=== PATIENT | female | born 1985 | race Caucasian/White ===

== ENCOUNTER 2025-05-24 18:43 | Inpatient (IN) ==
[2025-05-24] MEDS: SODIUM CHLORIDE 0.9% 500 ML IV STA (19:21)
[2025-05-24 19:45] LABS: Hematocrit (blood only) 42.1 % (37.0-47.0); Hemoglobin 13.3 g/dl (12.0-16.0); Immature Granulocytes # (auto) 0.05 K/uL (0.01-0.20); Immature Granulocytes % (auto) 0.4 %; Mean Corpuscular Hemoglobin 27.8 pg (25.0-34.0); Mean Corpuscular Volume 87.9 fL (80.0-100.0); Platelet Count 306 K/uL (130-400); RDW Standard Deviation 46.7 fL (36.4-46.3); Red Blood Count 4.79 M/uL (4.20-5.40); White Blood Count 13.84 K/ul (4.8-10.8)
[2025-05-24 19:50] LABS: Appearance Urine Clear (Clear); Glucose Urine UA Negative (Negative)
[2025-05-24 20:01] LABS: Alanine Aminotransferase 16.0 U/L (7-52); Albumin Globulin Ratio 1.0 (0.9-2); Albumin Level 3.9 gm/dl (3.4-5.0); Alkaline Phosphatase 76.0 U/L (34-104); Anion Gap 8.0 (3-11); Bilirubin,Total 0.5 mg/dl (0.2-1.0); Blood Urea Nitrogen 12.0 mg/dl (6-23); Calcium 9.2 mg/dl (8.6-10.3); Carbon Dioxide 27.0 mmol/L (21-32); Chloride 104.0 mmol/L (98-107); Creatinine Clr Calc Pharmacy 139.7 ml/min; Globulin 4.1 gm/dl (2.5-4.0); Glucose 81.0 mg/dl (70-99(Fasting)); Potassium 3.9 mmol/L (3.5-5.1); Sodium 139.0 mmol/L (136-145); Total Protein 8.0 gm/dl (6.0-8.3)
--- NOTE | 2025-05-24 20:50 | Emergency Department Note ---
Impression & Plan Bilateral flank pain, Leukocytosis, Urinary frequency, Failure of outpatient treatment ED Provider Note NAME: ERROL SAL AGE: 39 SEX: F : 1985 ARRIVES VIA: Walk-In INFORMANT: [Patient] ED PROVIDER(S): [Andres Vegas MD] CHIEF COMPLAINT: Urinary symptoms HISTORY OF PRESENT ILLNESS: The patient is a 39-year-old female presents to the ED with ongoing flank discomfort, urinary frequency urgency and chills. She has had nausea and maybe a low-grade fever. Patient went through 3 courses of cephalexin for UTI and, her symptoms are not improving. She is concerned that she is failing outpatient treatment, she presents for evaluation. There has been no vomiting, no diarrhea. She is using probiotics with her antibiotics. She states that she has a lot of medication allergies and, this is why they chose to use 3 courses of the same antibiotic over the last several weeks. PMHx/PSHx/Social Hx: See Below PHYSICAL EXAM: GENERAL: Patient is in no acute distress. HEENT: No acute trauma, normocephalic atraumatic, mucous membranes moist, no nasal congestion. NECK: No stridor, no adenopathy, no meningismus, trachea is midline. LUNGS: Clear to auscultation bilaterally, no wheeze, no rhonchi, breath sounds equal. HEART: Without murmurs gallops or rubs, regular rate and rhythm. ABDOMEN: Soft, nontender, no peritonitis. Obese. EXTREMITIES: No cyanosis, full range of motion of all the joints without pain or difficulty. NEUROLOGIC: Oriented x 3, no acute motor or sensory deficits, no focal weakness. SKIN: No jaundice, no diaphoresis. DIFFERENTIAL DIAGNOSIS: Pyelonephritis, failed outpatient management, diverticulitis, UTI, bacteremia or sepsis, among others. EMERGENCY DEPARTMENT PROCEDURES: MEDICAL DECISION MAKING: There is a mild leukocytosis, this could be consistent with infection. There was a normal hemoglobin and platelet count. No bandemia. No renal failure or significant electrolyte abnormality. Lactic acid level was not elevated making sepsis less likely. No concerning liver enzyme elevation. Urinalysis does not show infection, dehydration was seen. Abdominal and pelvis CT does not show any acute surgical process, there was no ureteral obstruction. testing was negative. Patient received IV saline, 1.5 L. She was given IV ceftriaxone as antibiotic coverage. Patient has been on 3 different courses of what sounds like cephalexin. She still has a white count, she still has urinary symptoms and is running a fever. She certainly may have a pyelonephritis which has failed outpatient therapy, especially given her ongoing flank pain. I do think admission, IV antibiotic therapy, further workup/care would be warranted. I spoke with the patient and case management, the on-call hospitalist was consulted. Prior/Outside records/notes reviewed: None Imaging/x-ray results per my interpretation: Chronic Medical/Social conditions affecting care: None Care/Management discussed with: Case management, the on-call hospitalist. Level of care consideration(s): After review of the information above and other included data: --I believe the patient requires escalation of care to admission DISPOSITION: Admission Past Med/Surg History Problem List (Updated 05/24/25 @ 23:23 by Andres Vegas MD) Failure of outpatient treatment (Acute) Urinary frequency (Acute) Leukocytosis (Acute) Bilateral flank pain (Acute) Medical History Acute UTI Surgical History No significant past surgical history Social History Smoking Status: Never smoker Preferred Language: Cypriot Feels Safe at Home: Yes Allergies Allergies Allergy/AdvReac Type Severity Reaction Status Date / Time COVID-19 (SARS-CoV-2) Allergy Severe Anaphylaxis---PFIZER Verified 03/20/25 17:57 vaccine, twyla BRAND metoclopramide [From Reglan] Allergy Severe Anaphylaxis Verified 03/20/25 17:57 /RASH/TREMO RS acetaminophen [From Tylenol] Allergy Intermediate "SKIN Verified 03/20/25 17:57 PEELED OFF" azithromycin Allergy Intermediate WAGNER Verified 03/20/25 17:57 DARIELA SYNDROME ketorolac [From Toradol] Allergy Intermediate WAGNER Verified 03/20/25 17:57 DARIELA SYNDROME naproxen [From Aleve] Allergy Intermediate ITCHY RASH Verified 03/20/25 17:57 ondansetron [From Zofran] Allergy Intermediate Rash Verified 03/20/25 17:57 ALL "FLOXICIN" ANTIBIOTICS Allergy Severe Anaphylaxis Uncoded 03/20/25 17:57 CT SCAN DYE Allergy Intermediate ITCHY ALL Uncoded 03/20/25 17:57 OVER Home Meds Home Medications Medication Instructions Recorded Confirmed Homeopathic Cardiac Support 1 dose PO DIRECTED PRN 01/13/25 03/20/25 NEEDED PER PT Results & Data (ED) Vital Signs Vital Signs - 24 hr 05/24/25 18:56 05/24/25 20:34 05/24/25 23:00 Temperature 36.4 C L Temperature Source Oral Pulse Rate 83 74 Pulse Rate [Apical] 83 Pulse Rhythm [Apical] Regular Pulse Strength [Apical] Normal Respiratory Rate 20 18 Respiratory Effort / Characteristics Non-Labored Spontaneous Non-Labored Spontaneous Respiratory Depth Normal Normal Respiratory Pattern Regular Regular Blood Pressure 141/90 H Blood Pressure [Right Arm] 142/77 H Blood Pressure Mean 107 Blood Pressure Mean [Right Arm] 98 Blood Pressure Position [Right Arm] Lying Pulse Oximetry 97 96 Oxygen Delivery Method Room Air Room Air Sepsis Recent Fever Within 48 Hours No Sepsis New/Unexplained Change in Mental Status No Sepsis Action Taken by Nursing No Action Required Home Medications Current Medication List: was personally reviewed by me Laboratory Data Attestation: I reviewed the patient's lab results. 05/24/25 19:24 05/24/25 19:24 Lab Results 05/24/25 05/24/25 Range/Units 19:24 21:18 WBC 13.84 H (4.8-10.8) K/ul RBC 4.79 (4.20-5.40) M/uL Hgb 13.3 (12.0-16.0) g/dl Hct 42.1 (37.0-47.0) % MCV 87.9 (80.0-100.0) fL MCH 27.8 (25.0-34.0) pg MCHC 31.6 L (32.0-36.0) g/dL RDW Std Deviation 46.7 H (36.4-46.3) fL RDW Coeff of Jessica 14.5 (11.5-14.5) % Plt Count 306 (130-400) K/uL MPV 10.4 (9.4-12.4) fL Immature Gran % (Auto) 0.4 % Neut % (Auto) 63.3 % Lymph % (Auto) 26.0 % [place] % (Auto) 8.7 % Eos % (Auto) 1.4 % Baso % (Auto) 0.2 % Neut # (Auto) 8.75 H (1.40-6.50) K/uL Lymph # (Auto) 3.60 H (1.20-3.40) K/uL [place]kins # (Auto) 1.21 H (0.11-0.59) K/uL Eos # (Auto) 0.20 (0.00-0.50) K/uL Baso # (Auto) 0.03 (0.00-0.20) K/uL Immature Gran # (Auto) 0.05 (0.01-0.20) K/uL Sodium 139 (136-145) mmol/L Potassium 3.9 (3.5-5.1) mmol/L Chloride 104 (98-107) mmol/L Carbon Dioxide 27 (21-32) mmol/L Anion Gap 8 (3-11) BUN 12 (6-23) mg/dl Creatinine 0.79 (0.6-1.2) mg/dl Est Cr Clr Drug Dosing 139.7 ml/min eGFR 96.92 BUN/Creatinine Ratio 15.2 (10-20) Glucose 81 (70-99(Fasting)) mg/dl Lactate 1.7 (0.4-2.0) mmol/L Calcium 9.2 (8.6-10.3) mg/dl Total Bilirubin 0.5 (0.2-1.0) mg/dl AST 13 (13-39) U/L ALT 16 (7-52) U/L Alkaline Phosphatase 76 (34-104) U/L Total Protein 8.0 (6.0-8.3) gm/dl Albumin 3.9 (3.4-5.0) gm/dl Globulin 4.1 H (2.5-4.0) gm/dl Albumin/Globulin Ratio 1.0 (0.9-2) Urine Color Yellow Urine Appearance Clear (Clear) Urine pH 5.0 (4.5-7.5) Ur Specific [place] 1.026 (1.000-1.030) Urine Protein Negative (Negative) Urine Glucose (UA) Negative (Negative) Urine Ketones Trace H (Negative) Urine Blood Negative (Negative) Urine Nitrite Negative (Negative) Urine Bilirubin Negative (Negative) Urine Urobilinogen Negative (Negative) Ur Leukocyte Esterase Negative (Negative) POC Ur Test NEG (NEG) Urine Comment Administered Medications Discontinued Medications Sodium Chloride (Nss) 500 mls @ 999 mls/hr IV .Q31M STA Stop: 05/24/25 19:30 Last Infusion: 05/24/25 19:52 Dose: Infused Documented By: Admin: 05/24/25 19:21 Dose: 999 mls/hr Documented By: MEGGAN Sodium Chloride (Nss) 1,000 mls @ 999 mls/hr IV .Q1H1M ONE Stop: 05/24/25 21:43 Last Infusion: 05/24/25 22:25 Dose: Infused Documented By: Admin: 05/24/25 21:24 Dose: 999 mls/hr Documented By: NICO Ceftriaxone Sodium (Rocephin) 2,000 mg in 50 mls @ 100 mls/hr IV NOW STA Stop: 05/24/25 21:13 Last Infusion: 05/24/25 21:48 Dose: Infused Documented By: Admin: 05/24/25 21:18 Dose: 100 mls/hr Documented By: NICO Imaging Data Radiologist's Impression: Abdomen/Pelvis CT 05/24/25 20:43 Exam(s): CT ABDOMEN + PELVIS Without Contrast EXAM: CT Abdomen and Pelvis Without Intravenous Contrast CLINICAL HISTORY: flank pain, poss stone. TECHNIQUE: Axial computed tomography images of the abdomen and pelvis without intravenous contrast. CTDI is 28.14 mGy and DLP is 1535.53 mGy-cm. Automated exposure control was utilized for the study. A dose lowering technique was utilized adhering to the principles of ALARA. COMPARISON: Noncontrast CT abdomen and pelvis dated 05/01/2025 FINDINGS: Limitations: There is diffuse respiratory artifact, which degrades image quality throughout the examination. Lung bases: Unremarkable. No mass. No consolidation. Mediastinum: A hiatal hernia is identified measuring 3.3 x 3.7 cm. ABDOMEN: Liver: Hepatomegaly, similar. Gallbladder and bile ducts: Unremarkable. No calcified stones. No ductal dilation. Pancreas: Unremarkable. No ductal dilation. Spleen: Unremarkable. No splenomegaly. Adrenals: Unremarkable. No mass. Kidneys and ureters: The unenhanced kidneys demonstrate normal contours without definite nephrolithiasis, accounting for limitations with respiratory artifact, or hydronephrosis. No definite ureteral stones. Stomach and bowel: The stomach is predominantly decompressed with only mild fluid and gas. No evidence for bowel obstruction. Evaluation of the bowel mucosa is limited without contrast and respiratory artifact. No obvious significant alteration from the prior examination. Moderate stool burden. PELVIS: Appendix: The appendix is not clearly delineated. Bladder: Unremarkable. No stones. Reproductive: Unremarkable as visualized. ABDOMEN and PELVIS: Intraperitoneal space: Unremarkable. No free air. No significant fluid collection. Bones/joints: No acute fracture. No dislocation. Soft tissues: Unremarkable. Vasculature: Unremarkable. No abdominal aortic aneurysm. Lymph nodes: Unremarkable. No enlarged lymph nodes. IMPRESSION: 1. There is diffuse respiratory artifact, which degrades image quality throughout the examination. 2. The unenhanced kidneys demonstrate normal contours without definite nephrolithiasis, accounting for limitations with respiratory artifact, or hydronephrosis. No definite ureteral stones. No bladder stones. 3. No evidence for bowel obstruction. Evaluation of the bowel mucosa is limited without contrast and respiratory artifact. No obvious significant alteration from the prior examination. Moderate stool burden. No free intraperitoneal fluid or definite pneumoperitoneum. Electronically signed by: Anton Mcclure MD 05/24/25 22:36 PM Discharge Plan Visit Data Chief Complaint: Urinary Symptoms Stated Complaint: KIDNEY STONE/UTI ED Provider: Andres Vegas Discharge Problem: Bilateral flank pain, Leukocytosis, Urinary frequency, Failure of outpatient treatment Patient Disposition: Admitted As Inpatient Condition: Fair Forms Stand Alone Forms: Ultrasound Medical Devices Prescriptions Prescriptions: No Action Homeopathic Cardiac Support 1 dose PO DIRECTED PRN (Reason: NEEDED PER PT) Rx Instructions: TINCTURES Referrals Referrals: PCP,NO [Primary Care Provider] - Discharge Problem: Leukocytosis Qualifiers: Leukocytosis type: unspecified Qualified Code(s): D72.829 - Elevated white blood cell count, unspecified
[2025-05-24] MEDS: cefTRIAXone SODIUM 2,000 MG/50 ML BAG IV STA (21:18)
[2025-05-24] MEDS: SODIUM CHLORIDE 0.9% 1,000 ML IV ONE (21:24)
--- NOTE | 2025-05-24 22:37 | CT Scan Report ---
Exam(s): CT ABDOMEN + PELVIS Without Contrast EXAM: CT Abdomen and Pelvis Without Intravenous Contrast CLINICAL HISTORY: flank pain, poss stone. TECHNIQUE: Axial computed tomography images of the abdomen and pelvis without intravenous contrast. CTDI is 28.14 mGy and DLP is 1535.53 mGy-cm. Automated exposure control was utilized for the study. A dose lowering technique was utilized adhering to the principles of ALARA. COMPARISON: Noncontrast CT abdomen and pelvis dated 05/01/2025 FINDINGS: Limitations: There is diffuse respiratory artifact, which degrades image quality throughout the examination. Lung bases: Unremarkable. No mass. No consolidation. Mediastinum: A hiatal hernia is identified measuring 3.3 x 3.7 cm. ABDOMEN: Liver: Hepatomegaly, similar. Gallbladder and bile ducts: Unremarkable. No calcified stones. No ductal dilation. Pancreas: Unremarkable. No ductal dilation. Spleen: Unremarkable. No splenomegaly. Adrenals: Unremarkable. No mass. Kidneys and ureters: The unenhanced kidneys demonstrate normal contours without definite nephrolithiasis, accounting for limitations with respiratory artifact, or hydronephrosis. No definite ureteral stones. Stomach and bowel: The stomach is predominantly decompressed with only mild fluid and gas. No evidence for bowel obstruction. Evaluation of the bowel mucosa is limited without contrast and respiratory artifact. No obvious significant alteration from the prior examination. Moderate stool burden. PELVIS: Appendix: The appendix is not clearly delineated. Bladder: Unremarkable. No stones. Reproductive: Unremarkable as visualized. ABDOMEN and PELVIS: Intraperitoneal space: Unremarkable. No free air. No significant fluid collection. Bones/joints: No acute fracture. No dislocation. Soft tissues: Unremarkable. Vasculature: Unremarkable. No abdominal aortic aneurysm. Lymph nodes: Unremarkable. No enlarged lymph nodes. IMPRESSION: 1. There is diffuse respiratory artifact, which degrades image quality throughout the examination. 2. The unenhanced kidneys demonstrate normal contours without definite nephrolithiasis, accounting for limitations with respiratory artifact, or hydronephrosis. No definite ureteral stones. No bladder stones. 3. No evidence for bowel obstruction. Evaluation of the bowel mucosa is limited without contrast and respiratory artifact. No obvious significant alteration from the prior examination. Moderate stool burden. No free intraperitoneal fluid or definite pneumoperitoneum. Electronically signed by: Anton Mcclure MD 05/24/25 22:36 PM
--- NOTE | 2025-05-25 01:05 | History & Physical Report ---
Date of Service May 25, 2025 Assessment & Plan (1) Bilateral flank pain: Plan: 39-year-old female unassigned patient with no significant past medical history patient says she has gallstones and probably high cholesterol and waiting for doctor's appointment comes because of ongoing urinary symptoms. Patient says she developed burning micturition and urgency and bilateral flank pains ongoing for last 3 weeks. She is on her third course of Keflex. Since her symptoms not improving and she was feeling nauseous, fatigue and some brain fog came to the ER today. Patient denies any fevers. Couple of weeks ago she had some shortness of breath while she was waiting outside the house and felt dizzy but that got resolved. Patient has some ear discomfort and sore throat but that improved on Keflex. No cough. No chest pain or shortness of breath. Appetite is okay. A few days ago she had diarrhea but that got resolved. Currently resting comfortably and hemodynamically stable. Bilateral flank pain Urinary symptoms Possible pyonephritis She is on third course of Keflex for UTI UA is unremarkable here CT abdomen pelvis is unremarkable Has leukocytosis But because of ongoing symptoms, getting admitted for possible pyonephritis Received Rocephin in Er which will be continued Gentle fluids Will follow blood cultures Morbid obesity Counseling DVT prophylaxis Heparin subcu Disposition Medical floor Full code. History of Present Illness Chief Complaint: Urinary symptoms Primary Care Provider: GUSTAVO PCP 39-year-old female unassigned patient with no significant past medical history patient says she has gallstones and probably high cholesterol and waiting for doctor's appointment comes because of ongoing urinary symptoms. Patient says she developed burning micturition and urgency and bilateral flank pains ongoing for last 3 weeks. She is on her third course of Keflex. Since her symptoms not improving and she was feeling nauseous, fatigue and some brain fog came to the ER today. Patient denies any fevers. Couple of weeks ago she had some shortness of breath while she was waiting outside the house and felt dizzy but that got resolved. Patient has some ear discomfort and sore throat but that improved on Keflex. No cough. No chest pain or shortness of breath. Appetite is okay. A few days ago she had diarrhea but that got resolved. Currently resting comfortably and hemodynamically stable. Past medical history. As mentioned above Past surgical history. Denies any surgeries. Family history significant for diabetes as per patient. Social history. Denies smoking or alcohol use. Allergies Allergy/AdvReac Type Severity Reaction Status Date / Time COVID-19 (SARS-CoV-2) Allergy Severe Anaphylaxis---PFIZER Verified 03/20/25 17:57 vaccine, twyla BRAND metoclopramide [From Reglan] Allergy Severe Anaphylaxis Verified 03/20/25 17:57 /RASH/TREMO RS Quinolones Allergy Severe Anaphylaxis Verified 05/25/25 04:01 -- "all FLOXICIN antibiotics" acetaminophen [From Tylenol] Allergy Intermediate "SKIN Verified 03/20/25 17:57 PEELED OFF" azithromycin Allergy Intermediate WAGNER Verified 03/20/25 17:57 DARIELA SYNDROME Iodinated Contrast Media Allergy Intermediate "CT scan Verified 05/25/25 04:01 dye" -- itchy all over ketorolac [From Toradol] Allergy Intermediate WAGNER Verified 03/20/25 17:57 DARIELA SYNDROME naproxen [From Aleve] Allergy Intermediate ITCHY RASH Verified 03/20/25 17:57 ondansetron [From Zofran] Allergy Intermediate Rash Verified 03/20/25 17:57 Home Medications Medication Instructions Recorded Confirmed Type Homeopathic Cardiac Support 1 dose PO DIRECTED PRN 01/13/25 03/20/25 History NEEDED PER PT Past Med/Surg History Problem List (Updated 05/24/25 @ 23:23 by Andres Vegas MD) Failure of outpatient treatment (Acute) Urinary frequency (Acute) Leukocytosis (Acute) Bilateral flank pain (Acute) Medical History Acute UTI Surgical History No significant past surgical history Social History Smoking Status: Never smoker Do You Dip or Chew Tobacco: No; Hx Alcohol Use: No Hx Substance Use: No Preferred Language: [place] Communication Ability: Effective Dianeticist Required: No Beliefs That Will Affect Care: None Current Living Situation: Spouse Feels Safe at Home: Yes Safety Concerns: Feels Safe At This Time Assistive Devices: None Review of Systems Review of Systems: All systems reviewed & are unremarkable except as noted in HPI & below Physical Exam Physical Exam: General- Not in distress Head- atraumatic Eyes- PERRL. ENT- oropharynx clear Neck- supple, no JVD. Lungs- clear to auscultation no wheezing or crackles Heart- regular rhythm; no murmur, no gallop. Abdomen- normal bowel sounds, soft, nontender, no distension, mild b/l cva tenderness Extremities- no pretibial edema, no erythema seen Neuro- alert, oriented PERRL, no facial palsy; no dysarthria; moves extremities Results & Data Results & Data Vital Signs (Past 12 Hours) Vital Signs Temp Pulse Pulse Resp BP BP Pulse Ox 05/25/25 00:35 89 05/24/25 23:00 83 18 142/77 H 96 05/24/25 20:34 74 05/24/25 18:56 36.4 C L 83 20 141/90 H 97 O2 Del Method 05/25/25 00:35 05/24/25 23:00 Room Air 05/24/25 20:34 05/24/25 18:56 Room Air Diagnostic Findings Laboratory Results WBC 13.84 K/ul (4.8-10.8) H 05/24/25 19:24 RBC 4.79 M/uL (4.20-5.40) 05/24/25 19:24 Hgb 13.3 g/dl (12.0-16.0) 05/24/25 19:24 Hct 42.1 % (37.0-47.0) 05/24/25 19:24 MCV 87.9 fL (80.0-100.0) 05/24/25 19:24 MCH 27.8 pg (25.0-34.0) 05/24/25 19:24 MCHC 31.6 g/dL (32.0-36.0) L 05/24/25 19:24 RDW Std Deviation 46.7 fL (36.4-46.3) H 05/24/25 19:24 RDW Coeff of Jessica 14.5 % (11.5-14.5) 05/24/25 19:24 Plt Count 306 K/uL (130-400) 05/24/25 19:24 MPV 10.4 fL (9.4-12.4) 05/24/25 19:24 Immature Gran % (Auto) 0.4 % 05/24/25 19:24 Neut % (Auto) 63.3 % 05/24/25 19:24 Lymph % (Auto) 26.0 % 05/24/25 19:24 [place] % (Auto) 8.7 % 05/24/25 19:24 Eos % (Auto) 1.4 % 05/24/25 19:24 Baso % (Auto) 0.2 % 05/24/25 19:24 Neut # (Auto) 8.75 K/uL (1.40-6.50) H 05/24/25 19:24 Lymph # (Auto) 3.60 K/uL (1.20-3.40) H 05/24/25 19:24 [place] # (Auto) 1.21 K/uL (0.11-0.59) H 05/24/25 19:24 Eos # (Auto) 0.20 K/uL (0.00-0.50) 05/24/25 19:24 Baso # (Auto) 0.03 K/uL (0.00-0.20) 05/24/25 19:24 Immature Gran # (Auto) 0.05 K/uL (0.01-0.20) 05/24/25 19:24 Sodium 139 mmol/L (136-145) 05/24/25 19:24 Potassium 3.9 mmol/L (3.5-5.1) 05/24/25 19:24 Chloride 104 mmol/L (98-107) 05/24/25 19:24 Carbon Dioxide 27 mmol/L (21-32) 05/24/25 19:24 Anion Gap 8 (3-11) 05/24/25 19:24 BUN 12 mg/dl (6-23) 05/24/25 19:24 Creatinine 0.79 mg/dl (0.6-1.2) 05/24/25 19:24 Est Cr Clr Drug Dosing 139.7 ml/min 05/24/25 19:24 eGFR 96.92 05/24/25 19:24 BUN/Creatinine Ratio 15.2 (10-20) 05/24/25 19:24 Glucose 81 mg/dl (70-99(Fasting)) 05/24/25 19:24 Lactate 1.7 mmol/L (0.4-2.0) 05/24/25 21:18 Calcium 9.2 mg/dl (8.6-10.3) 05/24/25 19:24 Total Bilirubin 0.5 mg/dl (0.2-1.0) 05/24/25 19:24 AST 13 U/L (13-39) 05/24/25 19:24 ALT 16 U/L (7-52) 05/24/25 19:24 Alkaline Phosphatase 76 U/L (34-104) 05/24/25 19:24 Total Protein 8.0 gm/dl (6.0-8.3) 05/24/25 19:24 Albumin 3.9 gm/dl (3.4-5.0) 05/24/25 19:24 Globulin 4.1 gm/dl (2.5-4.0) H 05/24/25 19:24 Albumin/Globulin Ratio 1.0 (0.9-2) 05/24/25 19:24 Urine Color Yellow 05/24/25 19:24 Urine Appearance Clear (Clear) 05/24/25 19:24 Urine pH 5.0 (4.5-7.5) 05/24/25 19:24 Ur Specific [place] 1.026 (1.000-1.030) 05/24/25 19:24 Urine Protein Negative (Negative) 05/24/25 19:24 Urine Glucose (UA) Negative (Negative) 05/24/25 19:24 Urine Ketones Trace (Negative) H 05/24/25 19:24 Urine Blood Negative (Negative) 05/24/25 19:24 Urine Nitrite Negative (Negative) 05/24/25 19:24 Urine Bilirubin Negative (Negative) 05/24/25 19:24 Urine Urobilinogen Negative (Negative) 05/24/25 19:24 Ur Leukocyte Esterase Negative (Negative) 05/24/25 19:24 POC Ur Test NEG (NEG) 05/24/25 19:24 Urine Comment 05/24/25 19:24 Impressions Abdomen/Pelvis CT 05/24/25 20:43 Exam(s): CT ABDOMEN + PELVIS Without Contrast EXAM: CT Abdomen and Pelvis Without Intravenous Contrast CLINICAL HISTORY: flank pain, poss stone. TECHNIQUE: Axial computed tomography images of the abdomen and pelvis without intravenous contrast. CTDI is 28.14 mGy and DLP is 1535.53 mGy-cm. Automated exposure control was utilized for the study. A dose lowering technique was utilized adhering to the principles of ALARA. COMPARISON: Noncontrast CT abdomen and pelvis dated 05/01/2025 FINDINGS: Limitations: There is diffuse respiratory artifact, which degrades image quality throughout the examination. Lung bases: Unremarkable. No mass. No consolidation. Mediastinum: A hiatal hernia is identified measuring 3.3 x 3.7 cm. ABDOMEN: Liver: Hepatomegaly, similar. Gallbladder and bile ducts: Unremarkable. No calcified stones. No ductal dilation. Pancreas: Unremarkable. No ductal dilation. Spleen: Unremarkable. No splenomegaly. Adrenals: Unremarkable. No mass. Kidneys and ureters: The unenhanced kidneys demonstrate normal contours without definite nephrolithiasis, accounting for limitations with respiratory artifact, or hydronephrosis. No definite ureteral stones. Stomach and bowel: The stomach is predominantly decompressed with only mild fluid and gas. No evidence for bowel obstruction. Evaluation of the bowel mucosa is limited without contrast and respiratory artifact. No obvious significant alteration from the prior examination. Moderate stool burden. PELVIS: Appendix: The appendix is not clearly delineated. Bladder: Unremarkable. No stones. Reproductive: Unremarkable as visualized. ABDOMEN and PELVIS: Intraperitoneal space: Unremarkable. No free air. No significant fluid collection. Bones/joints: No acute fracture. No dislocation. Soft tissues: Unremarkable. Vasculature: Unremarkable. No abdominal aortic aneurysm. Lymph nodes: Unremarkable. No enlarged lymph nodes. IMPRESSION: 1. There is diffuse respiratory artifact, which degrades image quality throughout the examination. 2. The unenhanced kidneys demonstrate normal contours without definite nephrolithiasis, accounting for limitations with respiratory artifact, or hydronephrosis. No definite ureteral stones. No bladder stones. 3. No evidence for bowel obstruction. Evaluation of the bowel mucosa is limited without contrast and respiratory artifact. No obvious significant alteration from the prior examination. Moderate stool burden. No free intraperitoneal fluid or definite pneumoperitoneum. Electronically signed by: Anton Mcclure MD 05/24/25 22:36 PM Code Status & VTE Plan VTE Prophylaxis Plan VTE Prophylaxis will be ordered: Yes
[2025-05-25] MEDS: SODIUM CHLORIDE 0.9% 1,000 ML IV SCH (04:38)
[2025-05-25 07:35] LABS: Hematocrit (blood only) 36.5 % (37.0-47.0); Hemoglobin 12.3 g/dl (12.0-16.0); Immature Granulocytes # (auto) 0.04 K/uL (0.01-0.20); Immature Granulocytes % (auto) 0.4 %; Mean Corpuscular Hemoglobin 29.1 pg (25.0-34.0); Mean Corpuscular Volume 86.5 fL (80.0-100.0); Platelet Count 263 K/uL (130-400); RDW Standard Deviation 45.2 fL (36.4-46.3); Red Blood Count 4.22 M/uL (4.20-5.40); White Blood Count 10.56 K/ul (4.8-10.8)
[2025-05-25 07:56] LABS: Anion Gap 6.0 (3-11); Blood Urea Nitrogen 10.0 mg/dl (6-23); Calcium 8.5 mg/dl (8.6-10.3); Carbon Dioxide 24.0 mmol/L (21-32); Chloride 107.0 mmol/L (98-107); Creatinine Clr Calc Pharmacy 163.3 ml/min; Glucose 98.0 mg/dl (70-99(Fasting)); Magnesium 1.9 mg/dl (1.7-2.4); Potassium 3.9 mmol/L (3.5-5.1); Sodium 137.0 mmol/L (136-145)
[2025-05-25] MEDS: HEPARIN SOD 5,000 UNIT/0.5 ML VIAL SQ SCH (09:03)
--- NOTE | 2025-05-25 13:07 | Hospitalist Progress Note ---
Date of Service May 25, 2025 Assessment & Plan (1) Bilateral flank pain: Plan: 39-year-old female unassigned patient with no significant past medical history patient says she has gallstones and probably high cholesterol and waiting for doctor's appointment comes because of ongoing urinary symptoms. Patient says she developed burning micturition and urgency and bilateral flank pains ongoing for last 3 weeks. She is on her third course of Keflex. Since her symptoms not improving and she was feeling nauseous, fatigue and some brain fog came to the ER today. Patient denies any fevers. Couple of weeks ago she had some shortness of breath while she was waiting outside the house and felt dizzy but that got resolved. Patient has some ear discomfort and sore throat but that improved on Keflex. No cough. No chest pain or shortness of breath. Appetite is okay. A few days ago she had diarrhea but that got resolved. Currently resting comfortably and hemodynamically stable. Bilateral flank pain Urinary symptoms Possible pyonephritis She is on third course of Keflex for UTI UA is unremarkable here CT abdomen pelvis is unremarkabledid not show any hydronephrosis Has leukocytosis which is resolved now But because of ongoing symptoms, getting admitted for possible pyonephritis Received Rocephin in Er which will be continued Gentle fluids was administered Blood cultures are pending and unfortunately urine culture was not sent She has been feeling better with decreasing back pain and urinary symptoms Will continue current intravenous antibiotic and will send urine culture and sensitivity Morbid obesity Counseling DVT prophylaxis Heparin subcu Disposition Medical floor Full code. Admission and Anticipated Discharge Date Admission Date: May 25, 2025 Subjective 05/25/2025 The patient was seen and examined in medical floor She has been complaining of back pain and also minimal discomfort in the hypogastrium today Denies any fever and/or chills and denies any other significant symptoms Clinically better today Review of Systems Review of Systems: All systems reviewed and are unremarkable except as noted below Physical Exam Physical Exam: Lying in bed with minimal distress due to back pain Constitutional: well developed, well nourished, + ill appearing and + morbidly obese Eyes: PERRL, conjunctivae normal, anicteric sclerae ENMT: external ear and nose normal, oropharynx normal Neck: trachea midline, no thyromegaly Respiratory: no respiratory distress Auscultation: lungs clear to auscultation bilaterally Cardiovascular: Rate/Rhythm: regular rate and regular rhythm; not tachycardic Heart Sounds: normal S1 and normal S2; no murmur Extremities: + edema ( trace edema bilateral) Gastrointestinal (Abdomen): Inspection/Auscultation: normal bowel sounds; abdomen not distended Percussion/Palpation: + abdomen tender ( minimally tender in the hypogastrium) and abdomen soft minimal tenderness involving bilateral renal angles Musculoskeletal: no acute arthritis involving any of the joint Neurologic: normal touch/pain/proprioception and moves all extremities; no focal motor deficits Psychiatric: A+Ox3, euthymic affect Lymphatic: no cervical or axillary lymphadenopathy Results & Data Results & Data Vital Signs (Past 12 Hours) Vital Signs Temp Pulse Pulse Resp BP BP Pulse Ox 05/25/25 07:11 36.8 C 68 16 135/80 96 05/25/25 04:22 36.9 C 81 18 135/84 99 05/25/25 02:15 77 18 129/78 96 O2 Del Method 05/25/25 07:11 Room Air 05/25/25 04:22 Room Air 05/25/25 02:15 Room Air Laboratory Results Short CBC 05/24/25 05/25/25 Range/Units 19:24 07:15 WBC 13.84 H 10.56 (4.8-10.8) K/ul Hgb 13.3 12.3 (12.0-16.0) g/dl Hct 42.1 36.5 L (37.0-47.0) % Plt Count 306 263 (130-400) K/uL BMP 05/24/25 05/25/25 19:24 07:15 Sodium 139 137 Potassium 3.9 3.9 Chloride 104 107 Carbon Dioxide 27 24 BUN 12 10 Creatinine 0.79 0.68 Glucose 81 98 Calcium 9.2 8.5 L Liver Function 05/24/25 Range/Units 19:24 Total Bilirubin 0.5 (0.2-1.0) mg/dl AST 13 (13-39) U/L ALT 16 (7-52) U/L Alkaline Phosphatase 76 (34-104) U/L Albumin 3.9 (3.4-5.0) gm/dl Urine 05/24/25 Range/Units 19:24 Urine Color Yellow Urine Appearance Clear (Clear) Urine pH 5.0 (4.5-7.5) Ur Specific [place] 1.026 (1.000-1.030) Urine Protein Negative (Negative) Urine Glucose (UA) Negative (Negative) Medications Administered Current Inpatient Medications Heparin Sodium (Porcine) (Heparin Sod 5,000 Unit/0.5 Ml Vial) 7,500 units SQ Q 12 MELL Stop: 06/24/25 08:59 Last Admin: 05/25/25 09:03 Dose: Not Given Sodium Chloride (Nss) 1,000 mls @ 80 mls/hr IV .[id number] MELL Stop: 05/25/25 16:21 Last Admin: 05/25/25 04:38 Dose: 80 mls/hr Ceftriaxone Sodium (Rocephin) 2,000 mg in 50 mls @ 100 mls/hr IV Q24H [facility] Stop: 06/01/25 20:59
[2025-05-25] MEDS: cefTRIAXone SODIUM 2,000 MG/50 ML BAG IV SCH (20:31)
[2025-05-26 09:01] LABS: Hematocrit (blood only) 36.7 % (37.0-47.0); Hemoglobin 12.2 g/dl (12.0-16.0); Immature Granulocytes # (auto) 0.03 K/uL (0.01-0.20); Immature Granulocytes % (auto) 0.3 %; Mean Corpuscular Hemoglobin 28.5 pg (25.0-34.0); Mean Corpuscular Volume 85.7 fL (80.0-100.0); Platelet Count 256 K/uL (130-400); RDW Standard Deviation 44.7 fL (36.4-46.3); Red Blood Count 4.28 M/uL (4.20-5.40); White Blood Count 10.16 K/ul (4.8-10.8)
[2025-05-26 09:24] LABS: Anion Gap 7.0 (3-11); Blood Urea Nitrogen 12.0 mg/dl (6-23); Calcium 8.8 mg/dl (8.6-10.3); Carbon Dioxide 23.0 mmol/L (21-32); Chloride 106.0 mmol/L (98-107); Creatinine Clr Calc Pharmacy 170.8 ml/min; Glucose 117.0 mg/dl (70-99(Fasting)); Potassium 3.7 mmol/L (3.5-5.1); Sodium 136.0 mmol/L (136-145)
--- NOTE | 2025-05-26 11:46 | Hospitalist Progress Note ---
Date of Service May 26, 2025 Assessment & Plan (1) Bilateral flank pain: Plan: 39-year-old female unassigned patient with no significant past medical history patient says she has gallstones and probably high cholesterol and waiting for doctor's appointment comes because of ongoing urinary symptoms. Patient says she developed burning micturition and urgency and bilateral flank pains ongoing for last 3 weeks. She is on her third course of Keflex. Since her symptoms not improving and she was feeling nauseous, fatigue and some brain fog came to the ER today. Patient denies any fevers. Couple of weeks ago she had some shortness of breath while she was waiting outside the house and felt dizzy but that got resolved. Patient has some ear discomfort and sore throat but that improved on Keflex. No cough. No chest pain or shortness of breath. Appetite is okay. A few days ago she had diarrhea but that got resolved. Currently resting comfortably and hemodynamically stable. Bilateral flank pain Urinary symptoms Possible pyonephritis She is on third course of Keflex for UTI UA is unremarkable here CT abdomen pelvis is unremarkabledid not show any hydronephrosis Has leukocytosis which is resolved now But because of ongoing symptoms, getting admitted for possible pyonephritis Received Rocephin in Er which will be continued Gentle fluids was administered Blood cultures are pending and unfortunately urine culture was not sent She has been feeling better with decreasing back pain and urinary symptoms Will continue current intravenous antibiotic and will send urine culture and sensitivity Blood cultures have been negative and urine culture is pending She has had oral Keflex as an outpatient without improvement of her urinary symptoms and back pain. Will await urine culture which is new will be negative prior to discharge her on oral medication. She is allergic to Cipro. Likely continue total of 5 to 7 days of antibiotics even though urine culture comes back negative Likely discharge tomorrow Morbid obesity Counseling DVT prophylaxis Heparin subcu Disposition Medical floor Full code. Admission and Anticipated Discharge Date Admission Date: May 25, 2025 Subjective 05/25/2025 The patient was seen and examined in medical floor She has been complaining of back pain and also minimal discomfort in the hypogastrium today Denies any fever and/or chills and denies any other significant symptoms Clinically better today 05/26/2025 The patient was seen and examined in medical floor She does not have any more back pain still has minimal dysuria and frequency No fever and/or chills, little nausea but no vomiting Review of Systems Review of Systems: All systems reviewed and are unremarkable except as noted below Physical Exam Physical Exam: Lying in bed with minimal distress due to back pain Constitutional: well developed, well nourished, + ill appearing and + morbidly obese Eyes: PERRL, conjunctivae normal, anicteric sclerae ENMT: external ear and nose normal, oropharynx normal Neck: trachea midline, no thyromegaly Respiratory: no respiratory distress Auscultation: lungs clear to auscultation bilaterally Cardiovascular: Rate/Rhythm: regular rate and regular rhythm; not tachycardic Heart Sounds: normal S1 and normal S2; no murmur Extremities: + edema ( trace edema bilateral) Gastrointestinal (Abdomen): Inspection/Auscultation: normal bowel sounds; abdomen not distended Percussion/Palpation: + abdomen tender ( minimally tender in the hypogastrium) and abdomen soft Musculoskeletal: No acute arthritis involving any of the joint Neurologic: normal touch/pain/proprioception and moves all extremities; no focal motor deficits Psychiatric: A+Ox3, euthymic affect Lymphatic: no cervical or axillary lymphadenopathy Results & Data Results & Data Vital Signs (Past 12 Hours) Vital Signs Temp Pulse Resp BP Pulse Ox O2 Del Method 05/26/25 07:13 36.9 C 74 16 155/96 H 95 Room Air Laboratory Results Short CBC 05/26/25 Range/Units 08:17 WBC 10.16 (4.8-10.8) K/ul Hgb 12.2 (12.0-16.0) g/dl Hct 36.7 L (37.0-47.0) % Plt Count 256 (130-400) K/uL BMP 05/26/25 08:17 Sodium 136 Potassium 3.7 Chloride 106 Carbon Dioxide 23 BUN 12 Creatinine 0.65 Glucose 117 H Calcium 8.8 Medications Administered Current Inpatient Medications Heparin Sodium (Porcine) (Heparin Sod 5,000 Unit/0.5 Ml Vial) 7,500 units SQ Q12 MELL Stop: 06/24/25 08:59 Last Admin: 05/26/25 08:15 Dose: Not Given Ceftriaxone Sodium (Rocephin) 2,000 mg in 50 mls @ 100 mls/hr IV Q24H MELL Stop: 06/01/25 20:59 Last Infusion: 05/25/25 21:10 Dose: Infused
[2025-05-27 07:28] VITALS: BP 129/87; RESP 16; TEMP 98.2; O2SAT 95
[2025-05-27] MEDS: cefTRIAXone SODIUM 2,000 MG/50 ML BAG IV SCH (10:24)
--- NOTE | 2025-05-27 12:18 | Hospitalist Progress Note ---
Date of Service May 27, 2025 Assessment & Plan (1) Bilateral flank pain: Plan: 39-year-old female unassigned patient with no significant past medical history patient says she has gallstones and probably high cholesterol and waiting for doctor's appointment comes because of ongoing urinary symptoms. Patient says she developed burning micturition and urgency and bilateral flank pains ongoing for last 3 weeks. She is on her third course of Keflex. Since her symptoms not improving and she was feeling nauseous, fatigue and some brain fog came to the ER today. Patient denies any fevers. Couple of weeks ago she had some shortness of breath while she was waiting outside the house and felt dizzy but that got resolved. Patient has some ear discomfort and sore throat but that improved on Keflex. No cough. No chest pain or shortness of breath. Appetite is okay. A few days ago she had diarrhea but that got resolved. Currently resting comfortably and hemodynamically stable. Bilateral flank pain Suspected urinary tract infection/pyelonephritis DD: LUTS Failed outpatient treatment with Keflex --CT ABD:There is diffuse respiratory artifact, which degrades image quality throughout the examination. The unenhanced kidneys demonstrate normal contours without definite nephrolithiasis, accounting for limitations with respiratory artifact, or hydronephrosis. No definite ureteral stones. No bladder stones. No evidence for bowel obstruction. Evaluation of the bowel mucosa is limited without contrast and respiratory artifact. No obvious significant alteration from the prior examination. Moderate stool burden. No free intraperitoneal fluid or definite pneumoperitoneum. --Blood cultures negative to date --Urine culture not contributory as patient already on antibiotics prior to sending the culture --On IV Rocephin--completed 3-day course Plan to transition to oral antibiotics on discharge Advised to follow-up with urology as outpatient for recurrent UTIs Symptoms resolved Morbid obesity Counseling BMI 52 DVT Px: Heparin SQ CODE STATUS Full code Disposition Home Admission and Anticipated Discharge Date Admission Date: May 25, 2025 Subjective Patient is seen and examined at bedside Offers no new complaints today Flank pain, dysuria resolved Cultures remain negative to date Denies any nausea, vomiting, chest pain, dyspnea Plan to be discharged home today Review of Systems Review of Systems: All systems reviewed & are unremarkable except as noted in Subjective Physical Exam Physical Exam: Physical Exam: Vitals signs as noted above General Appearance:Morbidly Obese, no apparent distress Head: normocephalic, Atraumatic Eyes: normal inspection, EOMI Neck: supple, Trachea midline Respiratory/Chest: Normal breath sounds, CTA, No accessory muscle use Cardiovascular: S1, S2, No murmur Abdomen/GI:Soft, Non tender, Bowel sounds present Extremities/Musculoskeletal:normal inspection, no edema Neurologic/Psych:AAOX3, grossly no focal neurological deficits Skin: normal color, warm Results & Data Results & Data Vital Signs (Past 12 Hours) Vital Signs Temp Pulse Resp BP Pulse Ox O2 Del Method 05/27/25 07:25 36.8 C 67 16 129/87 95 Room Air
--- NOTE | 2025-05-27 12:58 | Discharge Summary ---
Date of Service May 27, 2025 Admission HPI Per Admitting Provider 39-year-old female unassigned patient with no significant past medical history patient says she has gallstones and probably high cholesterol and waiting for doctor's appointment comes because of ongoing urinary symptoms. Patient says she developed burning micturition and urgency and bilateral flank pains ongoing for last 3 weeks. She is on her third course of Keflex. Since her symptoms not improving and she was feeling nauseous, fatigue and some brain fog came to the ER today. Patient denies any fevers. Couple of weeks ago she had some shortness of breath while she was waiting outside the house and felt dizzy but that got resolved. Patient has some ear discomfort and sore throat but that improved on Keflex. No cough. No chest pain or shortness of breath. Appetite is okay. A few days ago she had diarrhea but that got resolved. Currently resting comfortably and hemodynamically stable. Past medical history. As mentioned above Past surgical history. Denies any surgeries. Family history significant for diabetes as per patient. Social history. Denies smoking or alcohol use. Admission Exam Per Admitting Provider General- Not in distress Head- atraumatic Eyes- PERRL. ENT- oropharynx clear Neck- supple, no JVD. Lungs- clear to auscultation no wheezing or crackles Heart- regular rhythm; no murmur, no gallop. Abdomen- normal bowel sounds, soft, nontender, no distension, mild b/l cva tenderness Extremities- no pretibial edema, no erythema seen Neuro- alert, oriented PERRL, no facial palsy; no dysarthria; moves extremities Principal Diagnosis Suspected urinary tract infection Discharge Data Allergies Allergy/AdvReac Type Severity Reaction Status Date / Time COVID-19 (SARS-CoV-2) Allergy Severe Anaphylaxis---PFIZER Verified 03/20/25 17:57 vaccine, twyla BRAND metoclopramide [From Reglan] Allergy Severe Anaphylaxis Verified 03/20/25 17:57 /RASH/TREMO RS Quinolones Allergy Severe Anaphylaxis Verified 05/25/25 04:01 -- "all FLOXICIN antibiotics" acetaminophen [From Tylenol] Allergy Intermediate "SKIN Verified 03/20/25 17:57 PEELED OFF" azithromycin Allergy Intermediate WAGNER Verified 03/20/25 17:57 DARIELA SYNDROME Iodinated Contrast Media Allergy Intermediate "CT scan Verified 05/25/25 04:01 dye" -- itchy all over ketorolac [From Toradol] Allergy Intermediate WAGNER Verified 03/20/25 17:57 DARIELA SYNDROME naproxen [From Aleve] Allergy Intermediate ITCHY RASH Verified 03/20/25 17:57 ondansetron [From Zofran] Allergy Intermediate Rash Verified 03/20/25 17:57 Consultations 05/24/25 22:51 ED Decision to Admit Stat Procedures Performed Laboratory Results WBC 10.16 K/ul (4.8-10.8) 05/26/25 08:17 RBC 4.28 M/uL (4.20-5.40) 05/26/25 08:17 Hgb 12.2 g/dl (12.0-16.0) 05/26/25 08:17 Hct 36.7 % (37.0-47.0) L 05/26/25 08:17 MCV 85.7 fL (80.0-100.0) 05/26/25 08:17 MCH 28.5 pg (25.0-34.0) 05/26/25 08:17 MCHC 33.2 g/dL (32.0-36.0) 05/26/25 08:17 RDW Std Deviation 44.7 fL (36.4-46.3) 05/26/25 08:17 RDW Coeff of Jessica 14.5 % (11.5-14.5) 05/26/25 08:17 Plt Count 256 K/uL (130-400) 05/26/25 08:17 MPV 10.8 fL (9.4-12.4) 05/26/25 08:17 Immature Gran % (Auto) 0.3 % 05/26/25 08:17 Neut % (Auto) 64.4 % 05/26/25 08:17 Lymph % (Auto) 24.4 % 05/26/25 08:17 [place] % (Auto) 8.7 % 05/26/25 08:17 Eos % (Auto) 1.9 % 05/26/25 08:17 Baso % (Auto) 0.3 % 05/26/25 08:17 Neut # (Auto) 6.55 K/uL (1.40-6.50) H 05/26/25 08:17 Lymph # (Auto) 2.48 K/uL (1.20-3.40) 05/26/25 08:17 [place] # (Auto) 0.88 K/uL (0.11-0.59) H 05/26/25 08:17 Eos # (Auto) 0.19 K/uL (0.00-0.50) 05/26/25 08:17 Baso # (Auto) 0.03 K/uL (0.00-0.20) 05/26/25 08:17 Immature Gran # (Auto) 0.03 K/uL (0.01-0.20) 05/26/25 08:17 Sodium 136 mmol/L (136-145) 05/26/25 08:17 Potassium 3.7 mmol/L (3.5-5.1) 05/26/25 08:17 Chloride 106 mmol/L (98-107) 05/26/25 08:17 Carbon Dioxide 23 mmol/L (21-32) 05/26/25 08:17 Anion Gap 7 (3-11) 05/26/25 08:17 BUN 12 mg/dl (6-23) 05/26/25 08:17 Creatinine 0.65 mg/dl (0.6-1.2) 05/26/25 08:17 Est Cr Clr Drug Dosing 170.8 ml/min 05/26/25 08:17 eGFR 114.07 05/26/25 08:17 BUN/Creatinine Ratio 18.5 (10-20) 05/26/25 08:17 Glucose 117 mg/dl (70-99(Fasting)) H 05/26/25 08:17 Lactate 1.7 mmol/L (0.4-2.0) 05/24/25 21:18 Calcium 8.8 mg/dl (8.6-10.3) 05/26/25 08:17 Magnesium 1.9 mg/dl (1.7-2.4) 05/25/25 07:15 Total Bilirubin 0.5 mg/dl (0.2-1.0) 05/24/25 19:24 AST 13 U/L (13-39) 05/24/25 19:24 ALT 16 U/L (7-52) 05/24/25 19:24 Alkaline Phosphatase 76 U/L (34-104) 05/24/25 19:24 Total Protein 8.0 gm/dl (6.0-8.3) 05/24/25 19:24 Albumin 3.9 gm/dl (3.4-5.0) 05/24/25 19:24 Globulin 4.1 gm/dl (2.5-4.0) H 05/24/25 19:24 Albumin/Globulin Ratio 1.0 (0.9-2) 05/24/25 19:24 Urine Color Yellow 05/24/25 19:24 Urine Appearance Clear (Clear) 05/24/25 19:24 Urine pH 5.0 (4.5-7.5) 05/24/25 19:24 Ur Specific [place] 1.026 (1.000-1.030) 05/24/25 19:24 Urine Protein Negative (Negative) 05/24/25 19:24 Urine Glucose (UA) Negative (Negative) 05/24/25 19:24 Urine Ketones Trace (Negative) H 05/24/25 19:24 Urine Blood Negative (Negative) 05/24/25 19:24 Urine Nitrite Negative (Negative) 05/24/25 19:24 Urine Bilirubin Negative (Negative) 05/24/25 19:24 Urine Urobilinogen Negative (Negative) 05/24/25 19:24 Ur Leukocyte Esterase Negative (Negative) 05/24/25 19:24 POC Ur Test NEG (NEG) 05/24/25 19:24 Urine Comment 05/24/25 19:24 Impressions Abdomen/Pelvis CT 05/24/25 20:43 Exam(s): CT ABDOMEN + PELVIS Without Contrast EXAM: CT Abdomen and Pelvis Without Intravenous Contrast CLINICAL HISTORY: flank pain, poss stone. TECHNIQUE: Axial computed tomography images of the abdomen and pelvis without intravenous contrast. CTDI is 28.14 mGy and DLP is 1535.53 mGy-cm. Automated exposure control was utilized for the study. A dose lowering technique was utilized adhering to the principles of ALARA. COMPARISON: Noncontrast CT abdomen and pelvis dated 05/01/2025 FINDINGS: Limitations: There is diffuse respiratory artifact, which degrades image quality throughout the examination. Lung bases: Unremarkable. No mass. No consolidation. Mediastinum: A hiatal hernia is identified measuring 3.3 x 3.7 cm. ABDOMEN: Liver: Hepatomegaly, similar. Gallbladder and bile ducts: Unremarkable. No calcified stones. No ductal dilation. Pancreas: Unremarkable. No ductal dilation. Spleen: Unremarkable. No splenomegaly. Adrenals: Unremarkable. No mass. Kidneys and ureters: The unenhanced kidneys demonstrate normal contours without definite nephrolithiasis, accounting for limitations with respiratory artifact, or hydronephrosis. No definite ureteral stones. Stomach and bowel: The stomach is predominantly decompressed with only mild fluid and gas. No evidence for bowel obstruction. Evaluation of the bowel mucosa is limited without contrast and respiratory artifact. No obvious significant alteration from the prior examination. Moderate stool burden. PELVIS: Appendix: The appendix is not clearly delineated. Bladder: Unremarkable. No stones. Reproductive: Unremarkable as visualized. ABDOMEN and PELVIS: Intraperitoneal space: Unremarkable. No free air. No significant fluid collection. Bones/joints: No acute fracture. No dislocation. Soft tissues: Unremarkable. Vasculature: Unremarkable. No abdominal aortic aneurysm. Lymph nodes: Unremarkable. No enlarged lymph nodes. IMPRESSION: 1. There is diffuse respiratory artifact, which degrades image quality throughout the examination. 2. The unenhanced kidneys demonstrate normal contours without definite nephrolithiasis, accounting for limitations with respiratory artifact, or hydronephrosis. No definite ureteral stones. No bladder stones. 3. No evidence for bowel obstruction. Evaluation of the bowel mucosa is limited without contrast and respiratory artifact. No obvious significant alteration from the prior examination. Moderate stool burden. No free intraperitoneal fluid or definite pneumoperitoneum. Electronically signed by: Anton Mcclure MD 05/24/25 22:36 PM Ordered Studies 05/24/25 20:43 CT abd pelvis wo con Stat Hospital Course (1) Bilateral flank pain: 39-year-old female unassigned patient with no significant past medical history patient says she has gallstones and probably high cholesterol and waiting for doctor's appointment comes because of ongoing urinary symptoms. Patient says she developed burning micturition and urgency and bilateral flank pains ongoing for last 3 weeks. She is on her third course of Keflex. Since her symptoms not improving and she was feeling nauseous, fatigue and some brain fog came to the ER today. Patient denies any fevers. Couple of weeks ago she had some shortness of breath while she was waiting outside the house and felt dizzy but that got resolved. Patient has some ear discomfort and sore throat but that improved on Keflex. No cough. No chest pain or shortness of breath. Appetite is okay. A few days ago she had diarrhea but that got resolved. Currently resting comfortably and hemodynamically stable. Bilateral flank pain Suspected urinary tract infection/pyelonephritis DD: LUTS Failed outpatient treatment with Keflex --CT ABD:There is diffuse respiratory artifact, which degrades image quality throughout the examination. The unenhanced kidneys demonstrate normal contours without definite nephrolithiasis, accounting for limitations with respiratory artifact, or hydronephrosis. No definite ureteral stones. No bladder stones. No evidence for bowel obstruction. Evaluation of the bowel mucosa is limited without contrast and respiratory artifact. No obvious significant alteration from the prior examination. Moderate stool burden. No free intraperitoneal fluid or definite pneumoperitoneum. --Blood cultures negative to date --Urine culture not contributory as patient already on antibiotics prior to sending the culture --On IV Rocephin--completed 3-day course Plan to transition to oral antibiotics on discharge Advised to follow-up with urology as outpatient for recurrent UTIs Symptoms resolved Morbid obesity Counseling BMI 52 DVT Px: Heparin SQ CODE STATUS Full code Disposition Home Total Time Total Time Spent Total Time Spent (In Minutes): 52 minutes Discharge Plan Discharge Items Patient Disposition: Home - Self-Care Reason For Visit: PYELONEPHRITIS? Discharge Diagnosis: Suspected urinary tract infection Condition on Discharge: Fair Activity: Per Instructions section Exercise/Sports: Gradually increase as tolerated Non-emergency contact: Primary Care Provider Call non-emergency contact if: you have any medication questions, your symptoms worsen, your pain is concerning for you and you have a fever Follow-up/Referrals: PCP,NO [Primary Care Provider] - Diet: Heart Healthy Addtl Attending Provider Instructions: Follow-up with your primary care physician in 1 week Consider following with a Urologist for further evaluation for recurrent urinary tract infections -- Complete the antibiotic course cefuroxime for 4 more days as prescribed -- Your final blood cultures are pending at the time of discharge. Follow-up with your physician for results. Seek immediate medical attention if your symptoms reoccur or worsen Please review medication list provided on discharge for any medication changes as instructed. Please call if you have any questions or problems. You can reach a [facility] hospitalist on duty at [facility] 24 hours a day by calling [phone] Pending Studies at Discharge: Yes Studies:: Blood Cultures Stand-Alone Forms: My [facility] [employer] [place], Smoking Cessation Medications and DC Order Prescriptions: New cefuroxime axetil 500 mg tablet 500 mg PO BID Qty: 8 0RF Rx Instructions: Start taking from 05/28/2025 Continued Homeopathic Cardiac Support 1 dose PO DIRECTED PRN (Reason: NEEDED PER PT) Rx Instructions: TINCTURES Discharge Orders: Discharge Order (Routine); Ordered 05/27/25 Ordered By: Artie Thomas Admission Data Admit Date/Time: 05/25/25 00:58 Attending Provider: Artie Thomas Admit Provider: Andi Sousa Primary Care Provider: PCP,NO Other Providers: Andi Sousa
[2025-05-27 13:00] VITALS: PULSE 76
== END 2025-05-27 13:36 | disposition home or self-care (01) | DRG 690 ==
LOC: ED 18:43 → 3W 05-25 00:58 → SUATTDRO 05-25 00:58 → 3W 05-25 02:15